=== PATIENT | female | born 2000 | race Caucasian/White ===

== ENCOUNTER 2020-12-22 08:43 | Emergency (ER) | payer SELFPAY ==
[~2020-12-22] VITALS: Ht 157.5 cm; Wt 87.6 kg
--- NOTE | 2020-12-22 08:55 | NUR ---
Pt changing in to gown, steady ambulation noted, and warm blanket provided.
--- NOTE | 2020-12-22 09:01 | NUR ---
PA at bedside for exam. derrick builder completed. Pt here visiting.
--- NOTE | 2020-12-22 09:20 | NUR ---
IV started and labs drawn with aseptic technique. Pt tolerated well. US tech arrived and setting up for testing as ordered.
[2020-12-22] MEDS ORDERED: ONDANSETRON 2MG/ML, 2ML ONE (09:25)
[2020-12-22] MEDS ORDERED: FAMOTIDINE 20 MG/2 ML ONE (09:25)
[2020-12-22] MEDS ORDERED: MORPHINE SULFATE 4 MG/ML, 1ML ONE ×2 (09:25→10:49)
[2020-12-22] MEDS ORDERED: SODIUM CHLORIDE 0.9% 1,000ML IVBOLUS ONE ×2 (09:30→10:30)
[2020-12-22] MEDS ORDERED: ONDANSETRON 2MG/ML, 2ML IVPush ONE (09:30)
[2020-12-22] MEDS ORDERED: FAMOTIDINE 20 MG/2 ML IVPush ONE (09:30)
[2020-12-22] MEDS ORDERED: HYDR57CR PR (09:31)
[2020-12-22] MEDS ORDERED: ALBU90AE INH (09:31)
[2020-12-22] MEDS ORDERED: ESCI10TA10 PO (09:31)
[2020-12-22] MEDS ORDERED: SULF500T36 PO (09:31)
[2020-12-22] MEDS ORDERED: FOLI1TAB32 PO (09:31)
[2020-12-22] MEDS ORDERED: FAMO40TA61 PO (09:31)
[2020-12-22] MEDS: MORPHINE SULFATE 4 MG/ML, 1ML IVPush PRN ×2 (09:32→10:51)
--- NOTE | 2020-12-22 09:32 | NUR ---
Pt medicated for pain as ordered. US tech completed scan now. Pt aware of need for UA sample JESUS.
[2020-12-22 09:45] LABS: ALANINE AMINOTRANSFERASE 30 U/L (12-78); ALBUMIN 4.2 g/dL (3.4-5.0); ANION GAP 5 mmol/L (5-15); CALCIUM 9.4 mg/dL (8.5-10.1); CHLORIDE 108 mmol/L (98-107)
[2020-12-22 09:50] LABS: ALKALINE PHOSPHATASE 49 U/L (45-117); BILIRUBIN,TOTAL 0.9 mg/dL (0.2-1.0); TOTAL PROTEIN 8.3 g/dL (6.4-8.2)
[2020-12-22 10:02] LABS: BASOPHILS % (AUTO) 1 % (0-1); EOSINOPHILS % (AUTO) 1 % (1-7); LYMPHOCYTES % (AUTO) 23 % (22-44); MEAN CORPUSCULAR HEMOGLOBIN 29.6 pg (27.0-34.8); MEAN CORPUSCULAR HGB CONC 33.8 g/dL (32.4-35.8); MEAN PLATELET VOLUME 8.4 fL (7.4-10.4); MONOCYTES % (AUTO) 9 % (2-9); NEUTROPHILS % (AUTO) 68 % (42-75); PLATELET COUNT 291 x10^3/uL (130-400); RED BLOOD COUNT 4.43 x10^6/uL (3.82-5.3); RED CELL DISTRIBUTION WIDTH 13.3 % (9.6-15.2)
--- NOTE | 2020-12-22 10:14 | NUR ---
UA sample sent, NS bolus started and running wide open, and pain reassessed after medical doctor md/medical director. Reported pain is now 5/10.
[2020-12-22 10:26] LABS: MICROSCOPIC INDICATED
[2020-12-22 10:36] LABS: MD NO
--- NOTE | 2020-12-22 10:56 | NUR ---
Pt medicated for continued pain and VS reassessed. Pt aware of waiting for UA resutls at this time. PA already back in to reassess pt about 5 min ago.
--- NOTE | 2020-12-22 11:21 | NUR ---
Lab and US results reviewed, NS bolus still running and pain decreased from 6/10 to 3/10 after second dose of Morphine given. PA at bedside now to discuss findings and plan of care with pt.
--- NOTE | 2020-12-22 12:04 | NUR ---
Pt able to keep po liquids down but states mild nausea returning and asking for something prior to d/c. PA not able to be found at this time and pt updated, willing to wait. NS bolus running but slowly.
[2020-12-22] MEDS ORDERED: METOCLOPRAMIDE 5 MG/ML, 2ML ONE (12:10)
--- NOTE | 2020-12-22 12:28 | NUR ---
Pt medicated for nausea and IVF completed then IV site d/c'd with site benign. D/c instructions given with stated understanding of these including clear liquid diet and BRAT diet after 12 hours if feeling ok, being mindful of gluten and high sugar content foods.
[2020-12-22] MEDS ORDERED: METOCLOPRAMIDE 5 MG/ML, 2ML IVPush ONE (12:30)
[2020-12-22 12:33] VITALS: BP 110/62
== END 2020-12-22 12:37 | disposition home or self-care (01) ==
LOC: ED 09:13
DX: K29.00 Acute gastritis without bleeding (principal); R10.13 Epigastric pain; R11.2 Nausea with vomiting, unspecified
CPT/HCPCS: 36415; 76700; 80053; 81001; 83690; 84703; 85025; 87086; 96361; 96374; 96375; 96376; 99284; J2270; J2405; J2765; J7030